=== PATIENT | male | born 1980 | race Caucasian/White ===

== ENCOUNTER 2019-02-23 17:40 | Observation (INO) ==
[2019-02-23 18:29] LABS: Bilirubin,Urine Negative (Negative); Blood,Urine Negative (Negative); Clarity,Urine Clear (Clear); Color,Urine Yellow (Yellow); Glucose,Urine (UA) Normal (Normal); Ketones,Urine Negative (Negative); Leukocyte Esterase,Urine Small (Negative); Nitrite,Urine Negative (Negative); Protein,Urine Negative (Neg-Trace); Specific Gravity,Urine 1.016 (1.010-1.025); Urobilinogen,Urine Normal (Normal)
[2019-02-23 18:32] LABS: Hyaline Casts,Urine None Seen per lpf (None-Few); RBC,Urine 0-3 per hpf (0-3); Squamous Epithelial Cell,Urine Few per lpf (None-Few); WBC,Urine 0-3 per hpf (0-3)
[2019-02-23 18:44] LABS: Basophils # 0.1 K/mcL (0.0-0.2); Basophils % 0.5 %; Eosinophils # 0.2 K/mcL (0.0-0.6); Eosinophils % 1.7 %; Hematocrit 52.3 % (37.5-50.1); Hemoglobin 17.6 g/dL (12.9-16.9); Immature Granulocytes % 0.3 % (0-4); Lymphocytes # 3.2 K/mcL (0.6-4.6); Lymphocytes % 31.4 %; Mean Corpuscular HGB Conc 33.7 g/dL (31.6-35.5); Mean Corpuscular Hemoglobin 31.8 pg (28.0-33.3); Mean Corpuscular Volume 94.4 fL (83.0-100.0); Mean Platelet Volume 9.6 fL (9.4-12.4); Monocytes # 0.7 K/mcL (0.0-1.3); Monocytes % 7.2 %; Platelet Count 242 K/mcL (140-400); Red Blood Count 5.54 M/mcL (4.19-5.50); Red Cell Distribution Width 12.7 % (11.5-14.5); Segmented Neutrophils % 58.9 %; White Blood Count 10.3 K/mcL (4.3-11.1)
[2019-02-23 18:47] LABS: Bacteria,Urine Few per hpf (None-Few)
--- NOTE | 2019-02-23 18:49 | Emergency Department Note ---
Disposition Clinical Impression: Suicidal ideation, Chronic schizophrenia Disposition: Admitted As Inpatient Condition: Fair Time of Disposition: 22:27 General Adult HPI - General Chief complaint: ED Psychiatric Symptoms Stated complaint: 1A EVAL Time Seen by Provider: 02/23/19 17:44 Source: EMS Limitations: no limitations Nursing Notes Reviewed: Yes Vital Signs Reviewed: Yes - History of Present Illness HPI Narrative: Presents with suicidal ideation and he would like to kill himself with the plan of taking a lot of heroin. He has not used heroin in the past. He does have a history of schizophrenia. Is hearing voices. No homicidal ideation and no pain in the head, neck, chest, abdomen or back. Social history: Smoker, no alcohol or drugs Pain Scale: 0 - Related Data Home Medications Medication Instructions Recorded Confirmed Benztropine Mesylate 1 mg PO BID 02/02/16 02/02/16 Hydralazine HCl 50 mg PO BID 02/02/16 02/02/16 Perphenazine 4 mg PO HS 02/02/16 02/02/16 Perphenazine 32 mg PO HS 02/02/16 02/02/16 Quetiapine Fumarate [Seroquel] 200 mg PO HS 02/02/16 02/02/16 Quetiapine Fumarate [Seroquel] 800 mg PO HS 02/02/16 02/02/16 Previous Rx's Medication Instructions Recorded Clindamycin HCl [Cleocin HCl] 300 mg PO QID #40 cap 02/03/16 Sulfamethoxazole/Trimeth DS 1 each PO BID #20 tablet 04/22/16 [Bactrim DS] Allergies Allergy/AdvReac Type Severity Reaction Status Date / Time No Known Allergies Allergy Verified 02/02/16 15:13 Review of Systems: Constitutional: No fever Vision: No blurred vision ENT: No rhinorrhea Respiratory: No cough Allergic: No allergies : No blood in urine GI: No blood in stool Hematologic: No bruising Dermatologic: No skin rash Musculoskeletal: No pain in the extremities Neuro: No numbness of the extremities Past Medical History - Past Medical History Medical history: Reports: no medical history Psychiatric history: Reports: schizophrenia - Social History Smoking Status: Current every day smoker Smokeless Tobacco Status: No Alcohol use: Reports: none Drug use: Reports: none Physical Exam CONSTITUTIONAL: Alert and oriented X3, well-nourished, well appearing, in no apparent distress, eating a sandwich while I am in the room HEAD: Normocephalic; atraumatic. EYES: PERRL, no scleral icterus. NOSE: The nose is normal in appearance without rhinorrhea RESP: Normal chest excursion with respiration; breath sounds clear and equal bilaterally; no wheezes, rhonchi, or rales CARD: Regular rhythm, without murmurs, rub or gallop ABD: Non-distended; non-tender, soft,without rigidity, rebound or guarding SKIN: Normal for age and race; warm and dry; no apparent lesions - General Limitations: no limitations General appearance: alert Course Vital Signs Temperature 98.6 F 02/23/19 17:43 Pulse Rate 76 02/23/19 17:43 Respiratory Rate 18 02/23/19 17:43 Blood Pressure 135/87 02/23/19 17:43 O2 Sat by Pulse Oximetry 96 02/23/19 17:43 Temperature 98.6 F 02/23/19 17:43 Pulse Rate 76 02/23/19 17:43 Respiratory Rate 18 02/23/19 17:43 Blood Pressure 135/87 02/23/19 17:43 O2 Sat by Pulse Oximetry 96 02/23/19 17:43 Oxygen Delivery Oxygen Delivery Room Air Medical Decision Making - MDM Narrative Medical decision making narrative: I did order labs for psychiatric clearance and the patient will be assessed by the mental health team. 1848 I did speak with the psychiatric team and they will admit the patient here for suicidal ideation and plan 2226 - Medical Records Medical records reviewed: Yes I reviewed the patient's medical records. - Lab Data Lab results reviewed: Yes I reviewed the patient's lab results. Result diagrams: 02/23/19 18:34 02/23/19 18:34 Lab Results 02/23/19 02/23/19 02/23/19 Range/Units 17:53 17:53 18:34 WBC 10.3 (4.3-11.1) K/mcL RBC 5.54 H (4.19-5.50) M/mcL Hgb 17.6 H (12.9-16.9) g/dL Hct 52.3 H (37.5-50.1) % MCV 94.4 (83.0-100.0) fL MCH 31.8 (28.0-33.3) pg MCHC 33.7 (31.6-35.5) g/dL RDW 12.7 (11.5-14.5) % Plt Count 242 (140-400) K/mcL MPV 9.6 (9.4-12.4) fL Immature Gran % 0.3 (0-4) % Seg Neutrophils % 58.9 % Lymphocytes % 31.4 % Monocytes % 7.2 % Eosinophils % 1.7 % Basophils % 0.5 % Neutrophils # 6.0 (1.6-8.9) K/mcL Lymphocytes # 3.2 (0.6-4.6) K/mcL Monocytes # 0.7 (0.0-1.3) K/mcL Eosinophils # 0.2 (0.0-0.6) K/mcL Basophils # 0.1 (0.0-0.2) K/mcL Sodium (136-145) mEq/L Potassium (3.5-5.1) mEq/L Chloride (98-107) mEq/L Carbon Dioxide (23-29) mEq/L BUN (6-20) mg/dL Creatinine (0.70-1.30) mg/dL Est GFR ( Amer) (> 60) Est GFR (Non-Af Amer) (> 60) BUN/Creatinine Ratio (6-26) Glucose (70-105) mg/dL Calculated Osmolality (280-300) Calcium (8.6-10.3) mg/dL Urine Color Yellow (Yellow) Urine Clarity Clear (Clear) Urine pH 6.0 (5.0-8.0) pH Units Ur Specific [place] 1.016 (1.010-1.025) Urine Protein Negative (Neg-Trace) mg/dL Urine Glucose (UA) Normal (Normal) mg/dL Urine Ketones Negative (Negative) mg/dL Urine Blood Negative (Negative) Urine Nitrite Negative (Negative) Urine Bilirubin Negative (Negative) Urine Urobilinogen Normal (Normal) mg/dL Ur Leukocyte Esterase Small H (Negative) Urine Microscopic RBC 0-3 (0-3) per hpf Urine Microscopic WBC 0-3 (0-3) per hpf Ur Squamous Epith Cells Few (None-Few) per lpf Urine Bacteria Few (None-Few) per hpf Hyaline Casts None Seen (None-Few) per lpf Salicylates (15.0-30.0) mg/dL Urine Opiates Screen Negative (Hyncvn=333) ng/mL Ur Buprenorphine Scrn Negative (Cutoff=5) ng/mL Acetaminophen (10-20) mcg/mL Ur Barbiturates Screen Negative (Pbgzrv=751) ng/mL Ur Phencyclidine Scrn Negative (Cutoff=25) ng/mL Ur Amphetamines Screen Negative (Btchzt=0864) ng/mL U Benzodiazepines Scrn Negative (Etjxdh=071) ng/mL Urine Cocaine Screen Negative (Cutoff= 300) ng/mL U Marijuana (THC) Screen Negative (Cutoff = 50) ng/mL Ur Drug Screen Interp See Below Ethyl Alcohol (Less than 10) mg/dL 02/23/19 Range/Units 18:34 WBC (4.3-11.1) K/mcL RBC (4.19-5.50) M/mcL Hgb (12.9-16.9) g/dL Hct (37.5-50.1) % MCV (83.0-100.0) fL MCH (28.0-33.3) pg MCHC (31.6-35.5) g/dL RDW (11.5-14.5) % Plt Count (140-400) K/mcL MPV (9.4-12.4) fL Immature Gran % (0-4) % Seg Neutrophils % % Lymphocytes % % Monocytes % % Eosinophils % % Basophils % % Neutrophils # (1.6-8.9) K/mcL Lymphocytes # (0.6-4.6) K/mcL Monocytes # (0.0-1.3) K/mcL Eosinophils # (0.0-0.6) K/mcL Basophils # (0.0-0.2) K/mcL Sodium 139 (136-145) mEq/L Potassium 4.5 (3.5-5.1) mEq/L Chloride 105 (98-107) mEq/L Carbon Dioxide 28 (23-29) mEq/L BUN 8 (6-20) mg/dL Creatinine 0.98 (0.70-1.30) mg/dL Est GFR ( Amer) > 60 (> 60) Est GFR (Non-Af Amer) > 60 (> 60) BUN/Creatinine Ratio 8 (6-26) Glucose 94 (70-105) mg/dL Calculated Osmolality 286 (280-300) Calcium 9.8 (8.6-10.3) mg/dL Urine Color (Yellow) Urine Clarity (Clear) Urine pH (5.0-8.0) pH Units Ur Specific [place] (1.010-1.025) Urine Protein (Neg-Trace) mg/dL Urine Glucose (UA) (Normal) mg/dL Urine Ketones (Negative) mg/dL Urine Blood (Negative) Urine Nitrite (Negative) Urine Bilirubin (Negative) Urine Urobilinogen (Normal) mg/dL Ur Leukocyte Esterase (Negative) Urine Microscopic RBC (0-3) per hpf Urine Microscopic WBC (0-3) per hpf Ur Squamous Epith Cells (None-Few) per lpf Urine Bacteria (None-Few) per hpf Hyaline Casts (None-Few) per lpf Salicylates < 2.5 L (15.0-30.0) mg/dL Urine Opiates Screen (Zevows=855) ng/mL Ur Buprenorphine Scrn (Cutoff=5) ng/mL Acetaminophen < 10 L (10-20) mcg/mL Ur Barbiturates Screen (Xfiuks=963) ng/mL Ur Phencyclidine Scrn (Cutoff=25) ng/mL Ur Amphetamines Screen (Ymcrjc=2406) ng/mL U Benzodiazepines Scrn (Unakfz=923) ng/mL Urine Cocaine Screen (Cutoff= 300) ng/mL U Marijuana (THC) Screen (Cutoff = 50) ng/mL Ur Drug Screen Interp Ethyl Alcohol < 10 (Less than 10) mg/dL
[2019-02-23 18:56] LABS: Amphetamine Screen,Urine Negative ng/mL (Cutoff=1000); Barbiturate Screen,Urine Negative ng/mL (Cutoff=200); Benzodiazepines Screen,Urine Negative ng/mL (Cutoff=200); Cannabinoid Screen,Urine Negative ng/mL (Cutoff = 50); Cocaine Screen,Urine Negative ng/mL (Cutoff= 300); Opiate Screen,Urine Negative ng/mL (Cutoff=300); Phencyclidine Screen,Urine Negative ng/mL (Cutoff=25)
[2019-02-23 19:03] LABS: Acetaminophen < 10 mcg/mL (10-20); BUN/Creatinine Ratio 8 (6-26); Blood Urea Nitrogen 8 mg/dL (6-20); Calcium 9.8 mg/dL (8.6-10.3); Carbon Dioxide 28 mEq/L (23-29); Chloride 105 mEq/L (98-107); Ethanol < 10 mg/dL (Less than 10); Glucose 94 mg/dL (70-105); Osmolality,Calculated 286 (280-300); Potassium 4.5 mEq/L (3.5-5.1); Salicylate < 2.5 mg/dL (15.0-30.0); Sodium 139 mEq/L (136-145); eGFR For African Americans > 60 (> 60); eGFR For Non-African Americans > 60 (> 60)
[2019-02-23] MEDS ORDERED: hydrOXYzine pamoate 25 MG CAPSULE PO PRN (23:17)
[2019-02-23] MEDS ORDERED: Mag Hydrox/Al Hydrox/Simeth 30 ML UDC PO PRN (23:17)
[2019-02-23] MEDS ORDERED: Acetaminophen 325 MG TABLET PO PRN (23:17)
[2019-02-23] MEDS ORDERED: *HR* LORazepam 1 MG TABLET PO PRN (23:17)
[2019-02-23] MEDS ORDERED: MOM Conc 10 ML UD.LIQ PO PRN (23:17)
[2019-02-23] MEDS ORDERED: Haloperidol Lactate 5 MG/ML VIAL IM PRN (23:17)
[2019-02-23] MEDS ORDERED: Nicotine 2 MG GUM BC PRN (23:17)
[2019-02-23] MEDS ORDERED: traZODone 50 MG TABLET PO PRN (23:17)
[2019-02-23] MEDS ORDERED: *HR* LORazepam 2 MG/ML VIAL IM PRN (23:17)
[2019-02-24 09:00] VITALS: BP 119/79
--- NOTE | 2019-02-24 09:16 | Discharge Summary ---
Date of Encounter: 02/24/19 Time of Encounter: 09:15 History of Present Illness Chief complaint: "I want somewhere to live" Admitted From: Emergency Dept History of Present Illness: Mr. Bailey is a 38 year old male stated that he has had these suicidal thoughts for 3 years and he has no idea where to get heroin and has never used heroin before. He said that his main goal was just to get out of his assisted as he felt like they expected too much of him and were mean to him. This morning he denies suicidal or homicidal thoughts, ideations, or plans. He wants to go back to his assisted because he wants to be able to smoke. He does state of the TV at times talks to him but says this is been a chronic delusion and has not changed with medications. He is not hostile or aggressive. He is cooperative. Eyes command auditory hallucinations. She reports sometimes he hears a voice that tells him that he should not smoke cigarettes. He has no visual hallucinations. He has no manic symptoms. He has no depression symptoms at this time. Past Med Surg Social Fam HX - Past Medical History Medical history: no medical history - Past Psychiatric History Psychiatric history: Reports: prior suicide attempt, schizophrenia, previous psychiatric hospitalization Past psychiatric history details: He reports that he once tied an electrical cord around his wrists and identifies this as a suicide attempt however he knew it would not kill him and he has no other suicide attempts. He according to records is on perphenazine and Seroquel. He is unsure of the exact medications and says the assisted gives them to him. He has been in the hospital in the past including at the [facility]. He receives outpatient services through [facility]. Family psychiatric history: No Family History of Suicide: None - Social History Smoking Status: Current every day smoker Smokeless Tobacco Status: No Alcohol use: none Drug use: none Occupational status: disabled Current living situation: Senior Living Activity Level: Independent ambulation Recent Out of Country Travel Within the Last 8 Weeks: No Exposure or Possible Exposure to Illness During Travel: No Additional social history: He lives in the [facility] assisted. Medications - Discharge Medications Benztropine Mesylate 1 mg PO BID 02/02/16 [History] Hydralazine HCl 50 mg PO BID 02/02/16 [History] Perphenazine 4 mg PO HS 02/02/16 [History] Perphenazine 32 mg PO HS 02/02/16 [History] Quetiapine Fumarate [Seroquel] 200 mg PO HS 02/02/16 [History] Quetiapine Fumarate [Seroquel] 800 mg PO HS 02/02/16 [History] Allergy/AdvReac Type Severity Reaction Status Date / Time No Known Allergies Allergy Verified 02/02/16 15:13 Review of Systems Constitutional: Denies: fever Eyes: Denies: eye pain Ears, Nose, Throat: Denies: ear pain Cardiovascular: Denies: chest pain Respiratory: Denies: cough Gastrointestinal: Denies: abdominal pain Genitourinary male: Denies: urgency Musculoskeletal: Denies: back pain Integumentary: Denies: rash Neurological: Denies: headache Psychiatric: Reports: auditory hallucinations. Denies: depression, suicidal ideation, visual hallucinations Endocrine: Denies: fatigue Hematologic/Lymphatic: Denies: easy bleeding Allergic/Immunologic: Denies: facial swelling Exam - HEENT Head exam IM: Present: atraumatic Eye exam IM: Present: EOMI ENT exam IM: Present: mucous membranes moist - Neurological Neurological exam: Present: CN II-XII intact - Respiratory Respiratory exam IM: Absent: respiratory distress - GI/Abdominal GI/Abdominal exam IM: Present: no peritoneal signs - Extremities Extremities exam IM: Present: full ROM - Skin Skin exam IM: Absent: abrasion - Constitutional Vitals: Temp Pulse Resp BP Pulse Ox 97.1 F L 86 18 119/79 97 02/24/19 08:59 02/24/19 08:59 02/24/19 08:59 02/24/19 08:59 02/24/19 08:59 General appearance: age & developmentally appropriate, disheveled - Musculoskeletal Gait: normal Station: relaxed Strength & Tone: normal for patient - Psychiatric Patient Orientation: Yes Person, Yes Time, Yes Place, Yes Circumstance Level of alertness: Alert Behavior: calm, cooperative Psychomotor activity: Normal Eye Contact: Maintains Eye Contact Mood Description: Euthymic/stable Patient description of mood: Okay Affect description: constricted Speech Volume: Normal Speech pattern: normal rate, normal rhythm, normal tone, fluent, spontaneous Language & Vocabulary: consistent with education Thought Process: Logical Thought Content: No Suicidal ideation, No Homicidal ideation Perceptual Disturbances: Yes Auditory hallucinations, No Visual hallucinations Attention Span Ability: Capable of Focused Attention Memory Description: Grossly Intact Patient Reliability: Reliable Historian Fund of knowledge: Yes below average Intelligence Estimate: Below Average Judgment: Fair Insight: Partial Results - Drug Levels and Toxicology Drug Levels and Toxicology: Drug Levels and Toxicity 02/23/19 02/23/19 17:53 18:34 Urine Opiates Screen Negative Acetaminophen < 10 L Ur Barbiturates Screen Negative Ur Phencyclidine Scrn Negative Ur Amphetamines Screen Negative U Benzodiazepines Scrn Negative Urine Cocaine Screen Negative U Marijuana (THC) Screen Negative Ethyl Alcohol < 10 Lab Results 02/23/19 02/23/19 02/23/19 Range/Units 17:53 17:53 18:34 WBC 10.3 (4.3-11.1) K/mcL RBC 5.54 H (4.19-5.50) M/mcL Hgb 17.6 H (12.9-16.9) g/dL Hct 52.3 H (37.5-50.1) % MCV 94.4 (83.0-100.0) fL MCH 31.8 (28.0-33.3) pg MCHC 33.7 (31.6-35.5) g/dL RDW 12.7 (11.5-14.5) % Plt Count 242 (140-400) K/mcL MPV 9.6 (9.4-12.4) fL Immature Gran % 0.3 (0-4) % Seg Neutrophils % 58.9 % Lymphocytes % 31.4 % Monocytes % 7.2 % Eosinophils % 1.7 % Basophils % 0.5 % Neutrophils # 6.0 (1.6-8.9) K/mcL Lymphocytes # 3.2 (0.6-4.6) K/mcL Monocytes # 0.7 (0.0-1.3) K/mcL Eosinophils # 0.2 (0.0-0.6) K/mcL Basophils # 0.1 (0.0-0.2) K/mcL Sodium (136-145) mEq/L Potassium (3.5-5.1) mEq/L Chloride (98-107) mEq/L Carbon Dioxide (23-29) mEq/L BUN (6-20) mg/dL Creatinine (0.70-1.30) mg/dL Est GFR ( Amer) (> 60) Est GFR (Non-Af Amer) (> 60) BUN/Creatinine Ratio (6-26) Glucose (70-105) mg/dL Calculated Osmolality (280-300) Calcium (8.6-10.3) mg/dL Urine Color Yellow (Yellow) Urine Clarity Clear (Clear) Urine pH 6.0 (5.0-8.0) pH Units Ur Specific [place] 1.016 (1.010-1.025) Urine Protein Negative (Neg-Trace) mg/dL Urine Glucose (UA) Normal (Normal) mg/dL Urine Ketones Negative (Negative) mg/dL Urine Blood Negative (Negative) Urine Nitrite Negative (Negative) Urine Bilirubin Negative (Negative) Urine Urobilinogen Normal (Normal) mg/dL Ur Leukocyte Esterase Small H (Negative) Urine Microscopic RBC 0-3 (0-3) per hpf Urine Microscopic WBC 0-3 (0-3) per hpf Ur Squamous Epith Cells Few (None-Few) per lpf Urine Bacteria Few (None-Few) per hpf Hyaline Casts None Seen (None-Few) per lpf Salicylates (15.0-30.0) mg/dL Urine Opiates Screen Negative (Rngcce=180) ng/mL Ur Buprenorphine Scrn Negative (Cutoff=5) ng/mL Acetaminophen (10-20) mcg/mL Ur Barbiturates Screen Negative (Jagtks=539) ng/mL Ur Phencyclidine Scrn Negative (Cutoff=25) ng/mL Ur Amphetamines Screen Negative (Clrbun=9678) ng/mL U Benzodiazepines Scrn Negative (Zpcala=179) ng/mL Urine Cocaine Screen Negative (Cutoff= 300) ng/mL U Marijuana (THC) Screen Negative (Cutoff = 50) ng/mL Ur Drug Screen Interp See Below Ethyl Alcohol (Less than 10) mg/dL 02/23/19 Range/Units 18:34 WBC (4.3-11.1) K/mcL RBC (4.19-5.50) M/mcL Hgb (12.9-16.9) g/dL Hct (37.5-50.1) % MCV (83.0-100.0) fL MCH (28.0-33.3) pg MCHC (31.6-35.5) g/dL RDW (11.5-14.5) % Plt Count (140-400) K/mcL MPV (9.4-12.4) fL Immature Gran % (0-4) % Seg Neutrophils % % Lymphocytes % % Monocytes % % Eosinophils % % Basophils % % Neutrophils # (1.6-8.9) K/mcL Lymphocytes # (0.6-4.6) K/mcL Monocytes # (0.0-1.3) K/mcL Eosinophils # (0.0-0.6) K/mcL Basophils # (0.0-0.2) K/mcL Sodium 139 (136-145) mEq/L Potassium 4.5 (3.5-5.1) mEq/L Chloride 105 (98-107) mEq/L Carbon Dioxide 28 (23-29) mEq/L BUN 8 (6-20) mg/dL Creatinine 0.98 (0.70-1.30) mg/dL Est GFR ( Amer) > 60 (> 60) Est GFR (Non-Af Amer) > 60 (> 60) BUN/Creatinine Ratio 8 (6-26) Glucose 94 (70-105) mg/dL Calculated Osmolality 286 (280-300) Calcium 9.8 (8.6-10.3) mg/dL Urine Color (Yellow) Urine Clarity (Clear) Urine pH (5.0-8.0) pH Units Ur Specific [place] (1.010-1.025) Urine Protein (Neg-Trace) mg/dL Urine Glucose (UA) (Normal) mg/dL Urine Ketones (Negative) mg/dL Urine Blood (Negative) Urine Nitrite (Negative) Urine Bilirubin (Negative) Urine Urobilinogen (Normal) mg/dL Ur Leukocyte Esterase (Negative) Urine Microscopic RBC (0-3) per hpf Urine Microscopic WBC (0-3) per hpf Ur Squamous Epith Cells (None-Few) per lpf Urine Bacteria (None-Few) per hpf Hyaline Casts (None-Few) per lpf Salicylates < 2.5 L (15.0-30.0) mg/dL Urine Opiates Screen (Qqcnak=328) ng/mL Ur Buprenorphine Scrn (Cutoff=5) ng/mL Acetaminophen < 10 L (10-20) mcg/mL Ur Barbiturates Screen (Hxdpbk=122) ng/mL Ur Phencyclidine Scrn (Cutoff=25) ng/mL Ur Amphetamines Screen (Zkpxwd=2376) ng/mL U Benzodiazepines Scrn (Jmggwy=622) ng/mL Urine Cocaine Screen (Cutoff= 300) ng/mL U Marijuana (THC) Screen (Cutoff = 50) ng/mL Ur Drug Screen Interp Ethyl Alcohol < 10 (Less than 10) mg/dL - Labs Labs: Laboratory Last Values WBC 10.3 K/mcL (4.3-11.1) 02/23/19 18:34 RBC 5.54 M/mcL (4.19-5.50) H 02/23/19 18:34 Hgb 17.6 g/dL (12.9-16.9) H 02/23/19 18:34 Hct 52.3 % (37.5-50.1) H 02/23/19 18:34 MCV 94.4 fL (83.0-100.0) 02/23/19 18:34 MCH 31.8 pg (28.0-33.3) 02/23/19 18:34 MCHC 33.7 g/dL (31.6-35.5) 02/23/19 18:34 RDW 12.7 % (11.5-14.5) 02/23/19 18:34 Plt Count 242 K/mcL (140-400) 02/23/19 18:34 MPV 9.6 fL (9.4-12.4) 02/23/19 18:34 Immature Gran % 0.3 % (0-4) 02/23/19 18:34 Seg Neutrophils % 58.9 % 02/23/19 18:34 Lymphocytes % 31.4 % 02/23/19 18:34 Monocytes % 7.2 % 02/23/19 18:34 Eosinophils % 1.7 % 02/23/19 18:34 Basophils % 0.5 % 02/23/19 18:34 Neutrophils # 6.0 K/mcL (1.6-8.9) 02/23/19 18:34 Lymphocytes # 3.2 K/mcL (0.6-4.6) 02/23/19 18:34 Monocytes # 0.7 K/mcL (0.0-1.3) 02/23/19 18:34 Eosinophils # 0.2 K/mcL (0.0-0.6) 02/23/19 18:34 Basophils # 0.1 K/mcL (0.0-0.2) 02/23/19 18:34 Sodium 139 mEq/L (136-145) 02/23/19 18:34 Potassium 4.5 mEq/L (3.5-5.1) 02/23/19 18:34 Chloride 105 mEq/L (98-107) 02/23/19 18:34 Carbon Dioxide 28 mEq/L (23-29) 02/23/19 18:34 BUN 8 mg/dL (6-20) 02/23/19 18:34 Creatinine 0.98 mg/dL (0.70-1.30) 02/23/19 18:34 Est GFR ( Amer) > 60 (> 60) 02/23/19 18:34 Est GFR (Non-Af Amer) > 60 (> 60) 02/23/19 18:34 BUN/Creatinine Ratio 8 (6-26) 02/23/19 18:34 Glucose 94 mg/dL (70-105) 02/23/19 18:34 Calculated Osmolality 286 (280-300) 02/23/19 18:34 Calcium 9.8 mg/dL (8.6-10.3) 02/23/19 18:34 Urine Color Yellow (Yellow) 02/23/19 17:53 Urine Clarity Clear (Clear) 02/23/19 17:53 Urine pH 6.0 pH Units (5.0-8.0) 02/23/19 17:53 Ur Specific [place] 1.016 (1.010-1.025) 02/23/19 17:53 Urine Protein Negative mg/dL (Neg-Trace) 02/23/19 17:53 Urine Glucose (UA) Normal mg/dL (Normal) 02/23/19 17:53 Urine Ketones Negative mg/dL (Negative) 02/23/19 17:53 Urine Blood Negative (Negative) 02/23/19 17:53 Urine Nitrite Negative (Negative) 02/23/19 17:53 Urine Bilirubin Negative (Negative) 02/23/19 17:53 Urine Urobilinogen Normal mg/dL (Normal) 02/23/19 17:53 Ur Leukocyte Esterase Small (Negative) H 02/23/19 17:53 Urine Microscopic RBC 0-3 per hpf (0-3) 02/23/19 17:53 Urine Microscopic WBC 0-3 per hpf (0-3) 02/23/19 17:53 Ur Squamous Epith Cells Few per lpf (None-Few) 02/23/19 17:53 Urine Bacteria Few per hpf (None-Few) 02/23/19 17:53 Hyaline Casts None Seen per lpf (None-Few) 02/23/19 17:53 Salicylates < 2.5 mg/dL (15.0-30.0) L 02/23/19 18:34 Urine Opiates Screen Negative ng/mL (Ccmwtv=966) 02/23/19 17:53 Ur Buprenorphine Scrn Negative ng/mL (Cutoff=5) 02/23/19 17:53 Acetaminophen < 10 mcg/mL (10-20) L 02/23/19 18:34 Ur Barbiturates Screen Negative ng/mL (Pbwbzu=810) 02/23/19 17:53 Ur Phencyclidine Scrn Negative ng/mL (Cutoff=25) 02/23/19 17:53 Ur Amphetamines Screen Negative ng/mL (Zzroqs=0943) 02/23/19 17:53 U Benzodiazepines Scrn Negative ng/mL (Navqqf=102) 02/23/19 17:53 Urine Cocaine Screen Negative ng/mL (Cutoff= 300) 02/23/19 17:53 U Marijuana (THC) Screen Negative ng/mL (Cutoff = 50) 02/23/19 17:53 Ur Drug Screen Interp See Below 02/23/19 17:53 Ethyl Alcohol < 10 mg/dL (Less than 10) 02/23/19 18:34 Diagnosis - Discharge Diagnosis (1) Chronic schizophrenia Status: Acute Assessment and Plan - Patient/Caregiver Discharge Instructions Activity: resume usual activities as tolerated Diet: regular diet Additional Instructions: Continue current medications. Follow up with outpatient mental health. Encourage continued therapy in a group or individual setting. The patient was discharged to home. - Follow up Plan Follow up with: Kirk Rubio MD [Partnered Physician] - (Dr. Rubio will visit you at the assisted. This appointment will be arranged through assisted staff. ) Functional capacity at discharge: independent ambulation Overall status at discharge: Stable Disposition: Home, Self-Care Provider Date of admission: 02/23/19 22:23 Primary care physician: PCP NONE Discharging clinician: Marita Julian Hospital Course Hospital course: Mr. Bailey is a 38 year old male stated that he has had these suicidal thoughts for 3 years and he has no idea where to get heroin and has never used heroin before. He said that his main goal was just to get out of his assisted as he felt like they expected too much of him and were mean to him. This morning he denies suicidal or homicidal thoughts, ideations, or plans. He wants to go back to his assisted because he wants to be able to smoke. He does state of the TV at times talks to him but says this is been a chronic delusion and has not changed with medications. He is not hostile or aggressive. He is cooperative. Eyes command auditory hallucinations. She reports sometimes he hears a voice that tells him that he should not smoke cigarettes. He has no visual hallucinations. He has no manic symptoms. He has no depression symptoms at this time. We did not make any medication changes. The social service assistant is contacting his assisted to arrange transportation back. He is future oriented. Time spent discussing smoking cessation with patient: 3 to 10 minutes Does patient wish to continue nicotine replacement upon disc: No - Time Spent with Patient Total time spent providing and/or coordinating discharge services: 45 Greater than 30 minutes Specific discharge activities: Interval history reviewed. Available labs reviewed . Psychotherapy provided. Patient had an opportunity to ask questions and address concerns. Patient was in agreement with the treatment plan. The risks benefits and side effects of medications were discussed with the patient, including alternatives and treatment. The patient was educated on the abstaining from any alcohol or illicit substances, following up with all scheduled appointments, and taking all medications as prescribed. Procedures - Procedures Procedures: Medication Management, Crisis Stabilization, Supportive Therapy, Group Therapy, Psychoeducational Therapy Quality - Multiple Antipsychotics Patient discharged on 2 or more antipsychotic medications: No
== END 2019-02-24 12:55 | disposition home or self-care (01) ==
LOC: EMEROOARM 17:40 → INTOOBSV 22:23 → 1ANU 22:23
PROVIDERS: ADMIT Psychiatry & Neurology Psychiatry; ATTEND Psychiatry & Neurology Psychiatry